=== PATIENT | female | born 1935 | race Caucasian/White ===

== ENCOUNTER 2020-12-02 22:03 | Observation (INO) ==
[2020-12-02 23:18] LABS: Mean Corpuscular Hemoglobin 31.1 pg (28.0-33.3); Red Cell Distribution Width 14.3 % (11.5-14.5)
[2020-12-02 23:20] LABS: Basophils % 0.7 %; Eosinophils # 0.5 K/mcL (0.0-0.6); Eosinophils % 9.3 %; Hematocrit 27.9 % (35.3-44.9); Immature Granulocytes % 0.3 % (0-4); Immature Platelets 4.2 % (1.1-6.1); Lymphocytes # 0.6 K/mcL (0.6-4.6); Lymphocytes % 10.1 %; Mean Corpuscular HGB Conc 32.3 g/dL (31.6-35.5); Mean Corpuscular Volume 96.5 fL (83.0-100.0); Mean Platelet Volume 10.8 fL (9.4-12.4); Monocytes # 0.7 K/mcL (0.0-1.3); Monocytes % 12.2 %; Red Blood Count 2.89 M/mcL (3.82-4.97); Segmented Neutrophils % 67.4 %; White Blood Count 5.7 K/mcL (4.3-11.1)
[2020-12-02 23:25] LABS: Neutrophils # 3.8 K/mcL (1.6-8.9); Platelet Count 98 K/mcL (140-400)
[2020-12-02 23:38] LABS: Albumin 2.7 g/dL (3.5-5.7); Bilirubin,Direct 0.5 mg/dL (0.0-0.2); Bilirubin,Indirect 1.4 mg/dL (0.0-1.0); Bilirubin,Total 1.9 mg/dL (0.3-1.0); Globulin 2.7 g/dL (2.4-3.5); Total Protein 5.4 g/dL (6.4-8.9)
[2020-12-02] MEDS ORDERED: Pantoprazole 40 MG VIAL IVP ONE (23:39)
[2020-12-02 23:41] LABS: BUN/Creatinine Ratio 34 (6-26); Blood Urea Nitrogen 19 mg/dL (8-23); Calcium 8.3 mg/dL (8.6-10.3); Carbon Dioxide 26 mEq/L (23-29); Chloride 107 mEq/L (98-107); Glucose 92 mg/dL (70-105); Osmolality,Calculated 288 (280-300); Potassium 3.8 mEq/L (3.5-5.1); Sodium 138 mEq/L (136-145); Troponin I < 0.03 ng/mL (< 0.04); eGFR For African Americans > 60 (> 60); eGFR For Non-African Americans > 60 (> 60)
[2020-12-03] MEDS: 0.9 % Sodium Chloride 1,000 ML IVC SCH ×2 (00:43→11:39)
[2020-12-03] MEDS ORDERED: Isovue-370 500 ML BOTTLE IVP ONE (00:45)
[2020-12-03] MEDS: Pantoprazole 40 MG in 0.9 % Sodium Chloride Mini Bag 100 ML IVC SCH ×5 (00:45→22:54)
[2020-12-03] MEDS ORDERED: Naloxone 0.4 MG/ML INJ IVP PRN (02:28)
[2020-12-03] MEDS ORDERED: Ondansetron 4 MG/2 ML VIAL IVP PRN (02:28)
[2020-12-03 04:26] LABS: Immature Granulocytes % 0.5 % (0-4)
[2020-12-03 04:27] LABS: Basophils % 0.5 %; Eosinophils # 0.4 K/mcL (0.0-0.6); Eosinophils % 8.6 %; Hematocrit 24.8 % (35.3-44.9); Hemoglobin 8.1 g/dL (11.5-15.4); Immature Platelets 3.5 % (1.1-6.1); Lymphocytes # 0.6 K/mcL (0.6-4.6); Lymphocytes % 12.9 %; Mean Corpuscular HGB Conc 32.7 g/dL (31.6-35.5); Mean Corpuscular Hemoglobin 31.5 pg (28.0-33.3); Mean Corpuscular Volume 96.5 fL (83.0-100.0); Monocytes # 0.5 K/mcL (0.0-1.3); Monocytes % 11.5 %; Neutrophils # 2.9 K/mcL (1.6-8.9); Red Blood Count 2.57 M/mcL (3.82-4.97); Red Cell Distribution Width 14.2 % (11.5-14.5); White Blood Count 4.4 K/mcL (4.3-11.1)
[2020-12-03 04:30] LABS: Platelet Count 81 K/mcL (140-400)
[2020-12-03 04:38] LABS: INR 1.6; Prothrombin Time 18.1 Seconds (9.4-12.1)
[2020-12-03 04:41] LABS: Activated Partial Thrombo Time 31.5 Seconds (26.0-36.0)
[2020-12-03 04:44] LABS: BUN/Creatinine Ratio 31 (6-26); Blood Urea Nitrogen 16 mg/dL (8-23); Calcium 7.9 mg/dL (8.6-10.3); Carbon Dioxide 26 mEq/L (23-29); Chloride 107 mEq/L (98-107); Glucose 64 mg/dL (70-105); Osmolality,Calculated 285 (280-300); Potassium 3.3 mEq/L (3.5-5.1); Sodium 138 mEq/L (136-145); eGFR For African Americans > 60 (> 60); eGFR For Non-African Americans > 60 (> 60)
[2020-12-03] MEDS ORDERED: Dextrose Gel 15 GM/37.5 ML TUBE PO PRN ×2 (05:41)
[2020-12-03] MEDS ORDERED: D5% in Water 1,000 ML IVC PRN (05:41)
[2020-12-03] MEDS: *HR* Dextrose 50 % in Water (Vial) 50 ML VIAL IVP PRN (05:51)
[2020-12-03] MEDS ORDERED: Pantoprazole 40 MG VIAL IVP SCH (06:00)
[2020-12-03] MEDS ORDERED: Hydrocortisone Rectal 2.5% CRM 28 GM TUBE RC PRN (09:21)
[2020-12-03] MEDS ORDERED: Potassium Chloride 40 MEQ, Lidocaine 1% 2 ML in 0.9 % Sodium Chloride 500 ML IVPB ONE (09:30)
[2020-12-03 10:30] LABS: Hematocrit 24.6 % (35.3-44.9); Hemoglobin 7.9 g/dL (11.5-15.4)
[2020-12-03] MEDS: Insulin LISPRO 300 UNITS/3 ML VIAL SUBQ SCH ×2 (15:30→19:56)
[2020-12-03 15:31] LABS: Hematocrit 21.2 % (35.3-44.9); Hemoglobin 6.9 g/dL (11.5-15.4)
[2020-12-03] MEDS ORDERED: SODIUM CHLORIDE/NAHCO3/KCL/PEG 4,000 ML SOLN.RECON PO ONE (16:54)
[2020-12-03] MEDS ORDERED: 0.9 % Sodium Chloride 250 ML ONE (19:13)
[2020-12-04] MEDS: Insulin LISPRO 300 UNITS/3 ML VIAL SUBQ SCH ×4 (00:23→18:11)
[2020-12-04] MEDS: 0.9 % Sodium Chloride 1,000 ML IVC SCH ×3 (00:27→21:51)
[2020-12-04 01:57] LABS: Immature Granulocytes % 0.6 % (0-4); Red Cell Distribution Width 16.4 % (11.5-14.5)
[2020-12-04 01:59] LABS: Basophils % 0.8 %; Eosinophils # 0.5 K/mcL (0.0-0.6); Hematocrit 27.4 % (35.3-44.9); Hemoglobin 8.8 g/dL (11.5-15.4); Immature Platelets 4.4 % (1.1-6.1); Lymphocytes # 0.7 K/mcL (0.6-4.6); Lymphocytes % 14.3 %; Mean Corpuscular HGB Conc 32.1 g/dL (31.6-35.5); Mean Corpuscular Hemoglobin 29.8 pg (28.0-33.3); Mean Corpuscular Volume 92.9 fL (83.0-100.0); Mean Platelet Volume 10.8 fL (9.4-12.4); Monocytes # 0.5 K/mcL (0.0-1.3); Monocytes % 10.4 %; Neutrophils # 3.3 K/mcL (1.6-8.9); Red Blood Count 2.95 M/mcL (3.82-4.97); Segmented Neutrophils % 64.9 %; White Blood Count 5.1 K/mcL (4.3-11.1)
[2020-12-04 02:02] LABS: Platelet Count 88 K/mcL (140-400)
[2020-12-04] MEDS: Pantoprazole 40 MG in 0.9 % Sodium Chloride Mini Bag 100 ML IVC SCH ×2 (03:43→08:43)
[2020-12-04] MEDS: *HR* Dextrose 50 % in Water (Vial) 50 ML VIAL IVP PRN (06:02)
[2020-12-04 06:48] LABS: BUN/Creatinine Ratio 19 (6-26); Blood Urea Nitrogen 10 mg/dL (8-23); Calcium 7.4 mg/dL (8.6-10.3); Carbon Dioxide 23 mEq/L (23-29); Chloride 113 mEq/L (98-107); Glucose 165 mg/dL (70-105); Osmolality,Calculated 291 (280-300); Potassium 3.5 mEq/L (3.5-5.1); Sodium 139 mEq/L (136-145); eGFR For African Americans > 60 (> 60); eGFR For Non-African Americans > 60 (> 60)
[2020-12-04] MEDS: Pantoprazole 40 MG VIAL IVP SCH (17:10)
[2020-12-05] MEDS: Insulin LISPRO 300 UNITS/3 ML VIAL SUBQ SCH ×3 (01:36→12:18)
[2020-12-05] MEDS: Pantoprazole 40 MG VIAL IVP SCH (05:01)
[2020-12-05] MEDS: *HR* Dextrose 50 % in Water (Vial) 50 ML VIAL IVP PRN (05:01)
[2020-12-05 05:39] LABS: Immature Granulocytes % 0.6 % (0-4); Mean Corpuscular Hemoglobin 29.7 pg (28.0-33.3); Mean Corpuscular Volume 93.5 fL (83.0-100.0); Monocytes % 8.5 %
[2020-12-05 05:41] LABS: Basophils % 0.6 %; Eosinophils # 0.4 K/mcL (0.0-0.6); Eosinophils % 8.1 %; Hematocrit 28.6 % (35.3-44.9); Hemoglobin 9.1 g/dL (11.5-15.4); Immature Platelets 3.7 % (1.1-6.1); Lymphocytes # 0.5 K/mcL (0.6-4.6); Lymphocytes % 10.2 %; Mean Corpuscular HGB Conc 31.8 g/dL (31.6-35.5); Mean Platelet Volume 10.9 fL (9.4-12.4); Monocytes # 0.4 K/mcL (0.0-1.3); Red Blood Count 3.06 M/mcL (3.82-4.97); Red Cell Distribution Width 16.6 % (11.5-14.5); White Blood Count 5.2 K/mcL (4.3-11.1)
[2020-12-05 05:42] LABS: Neutrophils # 3.7 K/mcL (1.6-8.9); Platelet Count 83 K/mcL (140-400)
[2020-12-05 05:54] LABS: BUN/Creatinine Ratio 18 (6-26); Blood Urea Nitrogen 8 mg/dL (8-23); Calcium 7.6 mg/dL (8.6-10.3); Carbon Dioxide 22 mEq/L (23-29); Chloride 112 mEq/L (98-107); Glucose 64 mg/dL (70-105); Osmolality,Calculated 286 (280-300); Potassium 3.2 mEq/L (3.5-5.1); Sodium 140 mEq/L (136-145); eGFR For African Americans > 60 (> 60); eGFR For Non-African Americans > 60 (> 60)
[2020-12-05] MEDS: 0.9 % Sodium Chloride 1,000 ML IVC SCH (08:13)
[2020-12-05] MEDS ORDERED: Potassium Chloride 40 MEQ, Lidocaine 1% 2 ML in 0.9 % Sodium Chloride 500 ML IVPB ONE (08:39)
[2020-12-05 10:03] VITALS: BP 145/66
[2020-12-05] MEDS ORDERED: Scopolamine Patch 1.5 MG PATCH.TD72 ONE (10:03)
[2020-12-05] MEDS ORDERED: Lidocaine -MPF 2% 2 ML VIAL ONE (10:40)
[2020-12-05] MEDS ORDERED: *HR* Propofol 200 MG/20 ML VIAL IVP ONE (10:41)
== END 2020-12-05 17:23 | disposition home or self-care (01) ==
LOC: EMEROOARM 22:03 → 3ANU 22:03 → SUATTDRO 12-03 01:49 → 3ANU 12-03 02:31
PROVIDERS: ADMIT Student in an Organized Health Care Education/Training Program; ATTEND Student in an Organized Health Care Education/Training Program
PROC: ENDOCBX (2020-12-05 11:00)

== ENCOUNTER 2021-05-29 11:48 | Inpatient (IN) ==
[2021-05-29] MEDS ORDERED: Ondansetron 4 MG/2 ML VIAL IVP ONE (12:52)
[2021-05-29] MEDS ORDERED: 0.9 % Sodium Chloride 500 ML IV ONE (12:52)
[2021-05-29 13:33] LABS: Red Cell Distribution Width 17.4 % (11.5-14.5)
[2021-05-29 13:35] LABS: Hematocrit 28.3 % (35.3-44.9); Hemoglobin 9.5 g/dL (11.5-15.4); Immature Platelets 6.7 % (1.1-6.1); Mean Corpuscular HGB Conc 33.6 g/dL (31.6-35.5); Mean Corpuscular Volume 98.3 fL (83.0-100.0); Mean Platelet Volume 12.8 fL (9.4-12.4); Monocytes # 0.6 K/mcL (0.0-1.3); Nucleated Red Blood Cells 0.1 /100 WBC (0); Red Blood Count 2.88 M/mcL (3.82-4.97); White Blood Count 15.8 K/mcL (4.3-11.1)
[2021-05-29 13:36] LABS: Platelet Count 82 K/mcL (140-400)
[2021-05-29] MEDS ORDERED: Isovue-370 500 ML BOTTLE IVP ONE (13:40)
[2021-05-29 14:08] LABS: INR 2.8; Prothrombin Time 31.3 Seconds (9.4-12.1)
[2021-05-29 14:11] LABS: Activated Partial Thrombo Time 36.5 Seconds (26.0-36.0)
[2021-05-29 14:14] LABS: Lymphocytes # 0.3 K/mcL (0.6-4.6); Neutrophils # 14.9 K/mcL (1.6-8.9); Platelet Estimate Decreased (Normal)
[2021-05-29 14:23] LABS: Albumin 2.1 g/dL (3.5-5.7); Albumin/Globulin Ratio 0.7 (1.1-2.2); Bilirubin,Total 2.5 mg/dL (0.3-1.0); Calcium 8.1 mg/dL (8.6-10.3); Globulin 2.9 g/dL (2.4-3.5); Potassium 5.2 mEq/L (3.5-5.1); Troponin I 0.05 ng/mL (< 0.04)
[2021-05-29 14:50] LABS: Influenza A PCR Negative (Negative); Influenza B PCR Negative (Negative); Resp. Syncytial Virus PCR Negative (Negative); SARS-CoV-2 by PCR (In House) Negative (Negative)
[2021-05-29] MEDS ORDERED: 0.9 % Sodium Chloride 1,000 ML IVC ONE (16:02)
[2021-05-29 16:34] LABS: Bilirubin,Urine Moderate (Negative); Blood,Urine Negative (Negative); Clarity,Urine Clear (Clear); Color,Urine Yellow (Yellow); Glucose,Urine (UA) Normal (Normal); Ketones,Urine Trace mg/dL (Negative); Leukocyte Esterase,Urine Negative (Negative); Nitrite,Urine Negative (Negative); Protein,Urine Negative (Neg-Trace); Urobilinogen,Urine Normal (Normal)
[2021-05-29] MEDS ORDERED: Naloxone 0.4 MG/ML INJ IVP PRN ×2 (20:29→20:33)
[2021-05-29] MEDS ORDERED: *HR* Promethazine 25 MG/ML VIAL IM PRN (20:33)
[2021-05-29] MEDS ORDERED: MOM Conc 10 ML UD.LIQ PO PRN (20:33)
[2021-05-29] MEDS ORDERED: Acetaminophen 325 MG TABLET PO PRN (20:33)
[2021-05-29 21:45] LABS: Calcium 7.6 mg/dL (8.6-10.3); Magnesium 1.6 mg/dL (1.6-2.6); Phosphorous 4.4 mg/dL (2.7-4.5); Potassium 5.2 mEq/L (3.5-5.1)
[2021-05-29] MEDS ORDERED: Lactulose Oral Soln 20 GM/30 ML UDC PO ONE (22:42)
[2021-05-29 22:53] LABS: Troponin I 0.14 ng/mL (< 0.04)
[2021-05-30] MEDS ORDERED: D5% in Water 1,000 ML IVC PRN (00:39)
[2021-05-30] MEDS ORDERED: Dextrose Gel 15 GM/37.5 ML TUBE PO PRN ×2 (00:39)
[2021-05-30] MEDS ORDERED: *HR* Dextrose 50 % in Water (Syg) 50 ML SYRINGE IVP PRN (00:39)
[2021-05-30] MEDS ORDERED: Cefepime HCl 2,000 MG in 0.9 % Sodium Chloride Mini Bag 100 ML IVPB SCH (01:00)
[2021-05-30 01:15] LABS: Red Cell Distribution Width 17.6 % (11.5-14.5); White Blood Count 16.5 K/mcL (4.3-11.1)
[2021-05-30 01:16] LABS: Hematocrit 25.6 % (35.3-44.9); Immature Platelets 5.6 % (1.1-6.1); Mean Corpuscular HGB Conc 35.2 g/dL (31.6-35.5); Mean Corpuscular Hemoglobin 33.7 pg (28.0-33.3); Mean Corpuscular Volume 95.9 fL (83.0-100.0); Mean Platelet Volume 12.1 fL (9.4-12.4); Red Blood Count 2.67 M/mcL (3.82-4.97)
[2021-05-30] MEDS: 0.9 % Sodium Chloride 1,000 ML IVC SCH ×2 (01:19→15:01)
[2021-05-30] MEDS: Calcium Gluconate 1gm/50mL 1 GM/50 ML BAG IVPB SCH ×2 (01:20→01:42)
[2021-05-30 01:25] LABS: Platelet Count 95 K/mcL (140-400)
[2021-05-30 01:32] LABS: Albumin/Globulin Ratio 0.7 (1.1-2.2); Bilirubin,Total 2.4 mg/dL (0.3-1.0); Calcium 7.7 mg/dL (8.6-10.3); Potassium 5.2 mEq/L (3.5-5.1)
[2021-05-30 01:45] LABS: Lymphocytes # 0.3 K/mcL (0.6-4.6); Neutrophils # 16.2 K/mcL (1.6-8.9); Platelet Estimate Decreased (Normal)
[2021-05-30] MEDS ORDERED: Lactulose 200 GM, Sodium Chloride IRRigation 700 ML RC ONE (02:00)
[2021-05-30] MEDS: Insulin LISPRO 300 UNITS/3 ML VIAL SUBQ SCH ×2 (06:04→13:08)
[2021-05-30 07:04] VITALS: PULSE 91
[2021-05-30] MEDS ORDERED: Aspirin 81 MG TAB.CHEW PO SCH (09:00)
[2021-05-30 10:59] LABS: Acinetobacter baumannii by PCR Not Detected (Not Detect); Candida albicans by PCR Not Detected (Not Detect); Candida glabrata by PCR Not Detected (Not Detect); Candida krusei by PCR Not Detected (Not Detect); Candida parapsilosis by PCR Not Detected (Not Detect); Candida tropicalis by PCR Not Detected (Not Detect); Enterobacter cloacae Cmplx PCR Not Detected (Not Detect); Enterococcus by PCR Not Detected (Not Detect); Escherichia coli by PCR DETECTED (Not Detect); Klebsiella oxytoca by PCR Not Detected (Not Detect); Klebsiella pneumoniae by PCR Not Detected (Not Detect); Proteus by PCR Not Detected (Not Detect); Pseudomonas aeruginosa by PCR Not Detected (Not Detect); Serratia marcescens by PCR Not Detected (Not Detect); Staphylococcus aureus by PCR Not Detected (Not Detect); Staphylococcus by PCR Not Detected (Not Detect); Streptococcus agalactiae(B)PCR Not Detected (Not Detect); Streptococcus by PCR Not Detected (Not Detect); Streptococcus pneumoniae PCR Not Detected (Not Detect); Streptococcus pyogenes (A) PCR Not Detected (Not Detect); blaKPC Carbapenem-Resist Gene Not Detected (Not Detect)
[2021-05-30 12:47] VITALS: BP 122/80; TEMP 98.7; O2SAT 95
[2021-05-30] MEDS ORDERED: Acetaminophen IV 1,000 MG/100 ML BAG IVPB ONE (14:43)
[2021-05-30] MEDS ORDERED: Albumin 25% 25gram/100mL 25 GM/100 ML IV.SOLN IVC SCH (15:30)
[2021-05-30 16:24] LABS: ABG Base Excess -28 mEq/L (-2 to 3); ABG HCO3 4 mEq/L (21-27); ABG Oxygen Saturation 62 % (95-98); ABG PCO2 27 mmHg (35-45); ABG PH 6.77 pH Units (7.32-7.45); ABG PO2 60 mmHg (85-104); ABG TCO2 < 5 mEq/L (20-26)
[2021-05-30] MEDS ORDERED: Sodium Bicarbonate 50 MEQ/50 ML VIAL IVP ONE (16:59)
[2021-05-30] MEDS ORDERED: 0.9 % Sodium Chloride 1,000 ML IVC SCH (17:15)
[2021-05-30] MEDS ORDERED: cefTRIAXone 2,000 MG in 0.9 % Sodium Chloride Mini Bag 100 ML IVPB SCH (23:00)
== END 2021-05-30 21:40 | disposition expired | DRG 871 ==
LOC: 3ANU 11:48 → EMEROOARM 11:48 → SUATTDRO 19:07 → 3ANU 19:44
PROVIDERS: ADMIT Hospitalist; ATTEND Internal Medicine